=== PATIENT | male | born 1955 | race Caucasian/White ===

== ENCOUNTER 2021-05-20 01:23 | Observation (INO) ==
[2021-05-20] MEDS ORDERED: NITROGLYCERIN DRIP 50 MG/250 ML BOTTLE IV ONE (01:32)
[2021-05-20] MEDS ORDERED: diphenhydrAMINE CAP 25 MG CAPSULE PO PRN (02:32)
[2021-05-20] MEDS ORDERED: DEXTROSE 50% 25 GM/50 ML VIAL IV PRN (02:32)
[2021-05-20] MEDS ORDERED: MORPHINE 2 MG/1 ML SYRINGE IV PRN (02:32)
[2021-05-20] MEDS ORDERED: GLUCAGON 1 MG VIAL IM PRN (02:32)
[2021-05-20] MEDS ORDERED: ONDANSETRON 4 MG/2 ML VIAL IV PRN (02:32)
[2021-05-20] MEDS ORDERED: ACETAMINOPHEN 325 MG TABLET PO PRN (02:32)
[2021-05-20] MEDS ORDERED: NICOTINE 21 MG/24 HR PATCH TRANSDERM PRN (02:32)
[2021-05-20] MEDS ORDERED: hydrALAZINE 20 MG/1 ML VIAL IV PRN (02:32)
[2021-05-20 04:55] LABS: Basophils # 0.1 10*3/uL (0.0-0.2); Eosinophils # 0.1 10*3/uL (0.0-0.87); Eosinophils % 1.4 % (0.00-10.9); Hematocrit 44.6 VOL% (42.0-52.0); Hemoglobin 14.2 GM/DL (14.0-18.0); Immature Granulocytes % 0.6 %; Immature Granulocytes Absolute 0.06 #; Lymphocytes # 1.2 10*3/uL (1.4-4.0); Mean Corpuscular HGB Conc 31.8 GM/DL (32-36); Mean Corpuscular Volume 88.8 FL (87-102); Mean Platelet Volume 11.2 FL (9.6-12.0); Platelet Count 267 T/CUMM (130-400); Red Blood Count 5.02 MC/CUMM (3.8-5.5); Red Cell Distribution Width 13.8 % (9.3-17.3); White Blood Count 10.1 T/CUMM (4-12)
[2021-05-20 05:28] LABS: Albumin 3.1 G/DL (3.4-5.0); Bilirubin,Total 0.4 MG/DL (0.20-1.00); Calcium 8.5 MG/DL (8.5-10.1); Osmolality,Calculated 279.5 MOS/KG (273-304); Potassium 4.2 MMOL/L (3.5-5.1); Total Protein 5.9 G/DL (6.4-8.2)
[2021-05-20] MEDS ORDERED: ENOXAPARIN 80 MG/0.8 ML SYRINGE SUBCUT SCH (07:00)
[2021-05-20] MEDS ORDERED: NITROGLYCERIN 2% OINT 1 INCH/GM PACK TOP STA (07:41)
[2021-05-20] MEDS ORDERED: MAGNESIUM SULF RIDER 2 GM/50 ML PREMIX IV PRN (08:02)
[2021-05-20] MEDS ORDERED: POTASSIUM CHLORIDE RIDER 10 MEQ/100 ML PREMIX IV PRN (08:02)
[2021-05-20] MEDS ORDERED: diphenhydrAMINE CAP 50 MG CAPSULE PO ONE ×2 (08:47→10:00)
[2021-05-20] MEDS ORDERED: ENOXAPARIN 40 MG/0.4 ML SYRINGE SUBCUT SCH (09:00)
[2021-05-20] MEDS ORDERED: TICAGRELOR 90 MG TABLET PO SCH (09:00)
[2021-05-20] MEDS ORDERED: methylPREDNISolone SOD SUC 125 MG/2 ML VIAL IV SCH (09:00)
[2021-05-20] MEDS: diphenhydrAMINE CAP 25 MG CAPSULE PO SCH ×3 (09:40→21:53)
[2021-05-20] MEDS: SODIUM CHLORIDE 0.9% 1,000 ML IV SCH ×2 (09:40→17:58)
[2021-05-20] MEDS: ASPIRIN EC 81 MG TABLET PO SCH (09:40)
[2021-05-20] MEDS ORDERED: DIAZEPAM 5 MG TABLET PO ONE (10:00)
[2021-05-20] MEDS: FAMOTIDINE 20 MG/2 ML VIAL IV SCH ×2 (10:07→21:53)
[2021-05-20] MEDS: METOPROLOL TARTRATE 25 MG TABLET PO SCH ×2 (10:07→21:53)
[2021-05-20] MEDS: ATORVASTATIN 80 MG TABLET PO SCH (10:08)
[2021-05-20] MEDS ORDERED: LIDOCAINE 1% 20 ML VIAL ONE (12:13)
[2021-05-20] MEDS ORDERED: HEPARIN/NACL 0.9% 2 UNITS/ML 2,000 UNIT/1,000 ML BAG IV ONE (12:13)
[2021-05-20] MEDS ORDERED: MIDAZOLAM 2 MG/2 ML VIAL ONE (13:45)
[2021-05-20] MEDS ORDERED: fentaNYL 100 MCG/2 ML VIAL ONE (13:45)
[2021-05-20] MEDS ORDERED: NITROPRUSSIDE 50 MG/2 ML VIAL ONE (14:06)
[2021-05-20] MEDS ORDERED: ENOXAPARIN 60 MG/0.6 ML SYRINGE ONE (14:13)
[2021-05-20] MEDS ORDERED: TICAGRELOR 90 MG TABLET ONE (14:42)
[2021-05-20] MEDS ORDERED: NITROGLYCERIN SL 0.4 MG TABLET SL PRN (14:55)
[2021-05-20] MEDS ORDERED: ERGOCALCIFEROL 50,000 UNIT CAPSULE PO SCH (15:00)
[2021-05-20] MEDS: GABAPENTIN 600 MG TABLET PO SCH ×2 (17:57→21:53)
[2021-05-20] MEDS ORDERED: ATORVASTATIN 40 MG TABLET PO SCH (21:00)
[2021-05-20] MEDS: TICAGRELOR 90 MG TABLET PO SCH (21:52)
[2021-05-20] MEDS: HYDROXYCHLOROQUINE 200 MG TABLET PO SCH (21:53)
[2021-05-21] MEDS: SODIUM CHLORIDE 0.9% 1,000 ML IV SCH (03:17)
[2021-05-21 06:40] LABS: Basophils % 0.3 % (0.0-0.8); Hematocrit 41.8 VOL% (42.0-52.0); Hemoglobin 13.5 GM/DL (14.0-18.0); Immature Granulocytes % 0.8 %; Immature Granulocytes Absolute 0.12 #; Lymphocytes # 0.7 10*3/uL (1.4-4.0); Lymphocytes % 4.7 % (21.2-54.2); Mean Corpuscular HGB Conc 32.3 GM/DL (32-36); Mean Corpuscular Volume 89.9 FL (87-102); Mean Platelet Volume 11.1 FL (9.6-12.0); Monocytes % 8.6 % (1.7-12.7); Neutrophils % 85.6 % (38.7-73.9); Platelet Count 291 T/CUMM (130-400); Red Blood Count 4.65 MC/CUMM (3.8-5.5); Red Cell Distribution Width 13.9 % (9.3-17.3)
[2021-05-21 06:54] LABS: Band Neutrophils 4 % (0-10); Lymphocytes 9 % (20-55); Platelet Estimate Normal; Segmented Neutrophils 79 % (50-85); Total Cells Counted 100
[2021-05-21 06:55] LABS: Anisocytosis 1+
[2021-05-21 06:59] LABS: Calcium 8.4 MG/DL (8.5-10.1); Osmolality,Calculated 284.4 MOS/KG (273-304); Potassium 5.1 MMOL/L (3.5-5.1)
[2021-05-21] MEDS ORDERED: DULoxetine 30 MG CAPSULE PO SCH (09:00)
[2021-05-21] MEDS ORDERED: predniSONE 10 MG TABLET PO SCH (09:00)
[2021-05-21] MEDS: ASPIRIN EC 81 MG TABLET PO SCH (09:05)
[2021-05-21] MEDS: METOPROLOL TARTRATE 25 MG TABLET PO SCH (09:05)
[2021-05-21] MEDS: GABAPENTIN 600 MG TABLET PO SCH (09:05)
[2021-05-21] MEDS: ATORVASTATIN 80 MG TABLET PO SCH (09:05)
[2021-05-21] MEDS: HYDROXYCHLOROQUINE 200 MG TABLET PO SCH (09:05)
[2021-05-21] MEDS: TICAGRELOR 90 MG TABLET PO SCH (09:06)
[2021-05-21 12:10] VITALS: BP 109/59
== END 2021-05-21 13:36 | disposition home or self-care (01) ==
LOC: N.ED 01:23 → N.EDINP 01:23 → N.TELES 03:04
PROVIDERS: ADMIT Internal Medicine Geriatric Medicine; ATTEND Internal Medicine Interventional Cardiology

== ENCOUNTER 2021-05-22 20:22 | Inpatient (IN) ==
[2021-05-22] MEDS ORDERED: ASPIRIN 325 MG TABLET PO STA (21:28)
[2021-05-22] MEDS ORDERED: MORPHINE 2 MG/1 ML SYRINGE IV STA (21:28)
[2021-05-22] MEDS ORDERED: ALUM/MAG/SIMETH/LIDO VISC 1:1 30 ML BOTTLE PO STA (21:28)
[2021-05-22] MEDS ORDERED: NITROGLYCERIN 2% OINT 1 INCH/GM PACK TOP STA (21:28)
[2021-05-22] MEDS ORDERED: ONDANSETRON 4 MG/2 ML VIAL IV STA (21:28)
[2021-05-22 21:43] LABS: Basophils # 0.1 10*3/uL (0.0-0.2); Basophils % 0.6 % (0.0-0.8); Eosinophils # 0.1 10*3/uL (0.0-0.87); Hematocrit 44.1 VOL% (42.0-52.0); Hemoglobin 13.9 GM/DL (14.0-18.0); Immature Granulocytes % 0.5 %; Immature Granulocytes Absolute 0.06 #; Lymphocytes % 8.5 % (21.2-54.2); Mean Corpuscular HGB Conc 31.5 GM/DL (32-36); Mean Corpuscular Volume 89.1 FL (87-102); Mean Platelet Volume 10.9 FL (9.6-12.0); Monocytes % 10.9 % (1.7-12.7); Neutrophils % 78.5 % (38.7-73.9); Platelet Count 317 T/CUMM (130-400); Red Blood Count 4.95 MC/CUMM (3.8-5.5); White Blood Count 11.9 T/CUMM (4-12)
[2021-05-22 21:52] LABS: PT Patient Result 11.1 SECS (10.5-12.0)
[2021-05-22 21:53] LABS: Albumin 3.2 G/DL (3.4-5.0); Bilirubin,Total 0.5 MG/DL (0.20-1.00); Calcium 8.5 MG/DL (8.5-10.1); Osmolality,Calculated 284.1 MOS/KG (273-304); Potassium 4.2 MMOL/L (3.5-5.1); Total Protein 6.5 G/DL (6.4-8.2)
[2021-05-22] MEDS ORDERED: FUROSEMIDE 40 MG/4 ML VIAL IV STA (22:11)
[2021-05-22] MEDS ORDERED: METOPROLOL TARTRATE 5 MG/5 ML VIAL IV ONE (22:47)
[2021-05-22] MEDS ORDERED: METOPROLOL TARTRATE 5 MG/5 ML VIAL IV STA (22:47)
[2021-05-22] MEDS ORDERED: NITROGLYCERIN SL 0.4 MG TABLET SL PRN (23:12)
[2021-05-22] MEDS ORDERED: diphenhydrAMINE CAP 25 MG CAPSULE PO PRN (23:14)
[2021-05-22] MEDS ORDERED: GLUCAGON 1 MG VIAL IM PRN ×2 (23:14)
[2021-05-22] MEDS ORDERED: guaiFENesin/DM ER 600-30 MG TABLET PO PRN (23:14)
[2021-05-22] MEDS ORDERED: ONDANSETRON 4 MG/2 ML VIAL IV PRN (23:14)
[2021-05-22] MEDS ORDERED: hydrALAZINE 20 MG/1 ML VIAL IV PRN (23:14)
[2021-05-22] MEDS ORDERED: PROMETHAZINE 25 MG TABLET PO PRN (23:14)
[2021-05-22] MEDS ORDERED: ACETAMINOPHEN 325 MG TABLET PO PRN (23:14)
[2021-05-22] MEDS ORDERED: NICOTINE 21 MG/24 HR PATCH TRANSDERM PRN (23:14)
[2021-05-22] MEDS ORDERED: ZALEPLON 5 MG CAPSULE PO PRN (23:14)
[2021-05-22] MEDS ORDERED: DEXTROSE 50% 25 GM/50 ML VIAL IV PRN ×2 (23:14)
[2021-05-22] MEDS ORDERED: MORPHINE 2 MG/1 ML SYRINGE IV PRN (23:14)
[2021-05-22] MEDS: ENOXAPARIN 40 MG/0.4 ML SYRINGE SUBCUT SCH (23:43)
[2021-05-23] MEDS ORDERED: ALBUTEROL/IPRATROPIUM 3 ML NEB RESP TX ONE (00:10)
[2021-05-23] MEDS ORDERED: ALBUTEROL/IPRATROPIUM 3 ML NEB RESP TX SCH (01:00)
[2021-05-23 04:16] LABS: Calcium 8.5 MG/DL (8.5-10.1); Osmolality,Calculated 268.4 MOS/KG (273-304)
[2021-05-23 04:46] LABS: Basophils # 0.1 10*3/uL (0.0-0.2); Basophils % 0.6 % (0.0-0.8); Eosinophils # 0.1 10*3/uL (0.0-0.87); Eosinophils % 0.4 % (0.00-10.9); Hematocrit 44.6 VOL% (42.0-52.0); Hemoglobin 13.9 GM/DL (14.0-18.0); Immature Granulocytes % 0.6 %; Immature Granulocytes Absolute 0.09 #; Lymphocytes # 0.7 10*3/uL (1.4-4.0); Lymphocytes % 4.5 % (21.2-54.2); Mean Corpuscular HGB Conc 31.2 GM/DL (32-36); Mean Corpuscular Volume 89.6 FL (87-102); Mean Platelet Volume 10.6 FL (9.6-12.0); Monocytes % 11.5 % (1.7-12.7); Neutrophils % 82.4 % (38.7-73.9); Platelet Count 328 T/CUMM (130-400); Red Blood Count 4.98 MC/CUMM (3.8-5.5); White Blood Count 14.9 T/CUMM (4-12)
[2021-05-23 05:18] LABS: Band Neutrophils 1 % (0-10); Eosinophils 1 % (0-10); Lymphocytes 4 % (20-55); Platelet Estimate Adequate; Segmented Neutrophils 85 % (50-85); Total Cells Counted 100
[2021-05-23] MEDS ORDERED: cefTRIAXone 1,000 MG in SODIUM CHLORIDE 0.9% 100 ML IV SCH (06:00)
[2021-05-23] MEDS ORDERED: KETOROLAC 30 MG/1 ML VIAL IV ONE (06:48)
[2021-05-23] MEDS ORDERED: LEVALBUTEROL TARTRATE INH PRN (06:48)
[2021-05-23] MEDS ORDERED: SODIUM CHLORIDE 0.45% 1,000 ML IV SCH (08:00)
[2021-05-23] MEDS ORDERED: amLODIPine 10 MG TABLET PO SCH (09:00)
[2021-05-23] MEDS ORDERED: EMPAGLIFLOZIN 10 MG PO SCH (09:00)
[2021-05-23] MEDS ORDERED: METOPROLOL TARTRATE 25 MG TABLET PO SCH (09:00)
[2021-05-23] MEDS ORDERED: FUROSEMIDE 40 MG/4 ML VIAL IV SCH (09:00)
[2021-05-23] MEDS ORDERED: AZITHROMYCIN INJ 500 MG in SODIUM CHLORIDE 0.9% 250 ML IV SCH (09:00)
[2021-05-23] MEDS: GABAPENTIN 300 MG CAPSULE PO SCH ×3 (10:07→20:40)
[2021-05-23] MEDS: predniSONE 10 MG TABLET PO SCH (10:08)
[2021-05-23] MEDS: HYDROXYCHLOROQUINE 200 MG TABLET PO SCH ×2 (10:08→20:41)
[2021-05-23] MEDS: ASPIRIN EC 81 MG TABLET PO SCH (10:08)
[2021-05-23] MEDS: DULoxetine 30 MG CAPSULE PO SCH (10:08)
[2021-05-23] MEDS: ERGOCALCIFEROL 50,000 UNIT CAPSULE PO SCH (10:09)
[2021-05-23] MEDS: BENZONATATE 100 MG CAPSULE PO SCH ×3 (10:09→20:40)
[2021-05-23] MEDS: TICAGRELOR 90 MG TABLET PO SCH ×2 (10:09→20:41)
[2021-05-23] MEDS: ATORVASTATIN 80 MG TABLET PO SCH (10:10)
[2021-05-23] MEDS: DOXYCYCLINE HYCLATE 100 MG CAPSULE PO SCH ×2 (10:10→20:40)
[2021-05-23] MEDS: LOSARTAN 25 MG TABLET PO SCH (10:10)
[2021-05-23] MEDS: PANTOPRAZOLE 40 MG TABLET PO SCH (10:10)
[2021-05-23] MEDS: amLODIPine 5 MG TABLET PO SCH (10:11)
[2021-05-23] MEDS: INSULIN LISPRO 100 UNIT/ML SUBCUT SCH ×4 (10:11→22:07)
[2021-05-23] MEDS: METOPROLOL TARTRATE 25 MG TABLET PO SCH ×2 (10:12→20:40)
[2021-05-23] MEDS: KETOROLAC 15 MG/1 ML VIAL IV SCH ×3 (10:12→18:18)
[2021-05-23] MEDS ORDERED: DEXTROSE 50% 25 GM/50 ML VIAL IV PRN (10:45)
[2021-05-23] MEDS: DOCUSATE SODIUM 100 MG CAPSULE PO PRN (22:24)
[2021-05-23] MEDS: ENOXAPARIN 40 MG/0.4 ML SYRINGE SUBCUT SCH (23:10)
[2021-05-24] MEDS: KETOROLAC 15 MG/1 ML VIAL IV SCH ×3 (00:55→12:50)
[2021-05-24] MEDS: DOCUSATE SODIUM 100 MG CAPSULE PO PRN (04:42)
[2021-05-24 05:42] LABS: Basophils # 0.1 10*3/uL (0.0-0.2); Basophils % 0.6 % (0.0-0.8); Eosinophils # 0.2 10*3/uL (0.0-0.87); Eosinophils % 2.1 % (0.00-10.9); Hematocrit 39.8 VOL% (42.0-52.0); Hemoglobin 12.3 GM/DL (14.0-18.0); Immature Granulocytes % 0.7 %; Immature Granulocytes Absolute 0.06 #; Lymphocytes % 11.4 % (21.2-54.2); Mean Corpuscular HGB Conc 30.9 GM/DL (32-36); Mean Corpuscular Volume 90.2 FL (87-102); Mean Platelet Volume 11.3 FL (9.6-12.0); Monocytes % 12.8 % (1.7-12.7); Neutrophils % 72.4 % (38.7-73.9); Platelet Count 219 T/CUMM (130-400); Red Blood Count 4.41 MC/CUMM (3.8-5.5); Red Cell Distribution Width 13.7 % (9.3-17.3); White Blood Count 8.8 T/CUMM (4-12)
[2021-05-24 05:50] LABS: Calcium 8.3 MG/DL (8.5-10.1); Osmolality,Calculated 276.8 MOS/KG (273-304); Potassium 4.3 MMOL/L (3.5-5.1)
[2021-05-24] MEDS: ERGOCALCIFEROL 50,000 UNIT CAPSULE PO SCH (09:53)
[2021-05-24] MEDS: DOXYCYCLINE HYCLATE 100 MG CAPSULE PO SCH (09:54)
[2021-05-24] MEDS: TICAGRELOR 90 MG TABLET PO SCH (09:54)
[2021-05-24] MEDS: BENZONATATE 100 MG CAPSULE PO SCH (09:54)
[2021-05-24] MEDS: GABAPENTIN 300 MG CAPSULE PO SCH (09:54)
[2021-05-24] MEDS: predniSONE 10 MG TABLET PO SCH (09:56)
[2021-05-24] MEDS: amLODIPine 5 MG TABLET PO SCH (09:56)
[2021-05-24] MEDS: ATORVASTATIN 80 MG TABLET PO SCH (09:56)
[2021-05-24] MEDS: HYDROXYCHLOROQUINE 200 MG TABLET PO SCH (09:56)
[2021-05-24] MEDS: LOSARTAN 25 MG TABLET PO SCH (09:56)
[2021-05-24] MEDS: PANTOPRAZOLE 40 MG TABLET PO SCH (09:56)
[2021-05-24] MEDS: DULoxetine 30 MG CAPSULE PO SCH (09:56)
[2021-05-24] MEDS: METOPROLOL TARTRATE 25 MG TABLET PO SCH (09:57)
[2021-05-24] MEDS: ASPIRIN EC 81 MG TABLET PO SCH (09:57)
[2021-05-24] MEDS: INSULIN LISPRO 100 UNIT/ML SUBCUT SCH (12:33)
[2021-05-24 13:13] VITALS: BP 134/82
== END 2021-05-24 13:09 | disposition home or self-care (01) | DRG 246 ==
LOC: EDUNIT# → N.ED 20:22 → N.EDINP 05-23 00:47 → N.TELES 05-23 06:25
PROVIDERS: ADMIT Internal Medicine Geriatric Medicine; ATTEND Internal Medicine Geriatric Medicine